=== PATIENT | male | born 1985 | race Caucasian/White ===

== ENCOUNTER 2019-05-17 07:45 | Emergency (ER) | payer SELFPAY ==
[2019-05-17 07:46] VITALS: BP 201/128; PULSE 97; RESP 18; TEMP 36.2; O2SAT 97; BMI 48.8
--- NOTE | 2019-05-17 08:02 | ED.DCSUM_ITS ---
- ER Visit Summary Date of Service: 05/17/19 Chief Complaint: [Back pain] History of Present Illness: The patient is a 33 M [presents to the emergency department complaint of back pain x2 weeks. Patient states that he has had this issue off and on since high school. Patient noticed that over the last 2 weeks has had exacerbation of his pain and describes some pain radiating into the right buttock and down to the lateral aspect of the right knee. Denies any change in bowel bladder function. He denies weakness in the extremity. He denies urinary symptoms. He denies fevers. He denies IV drug use. Denies any trauma to his back although he states he hurt his back in high school he was told he had some herniated disks and had an MRI while he was in high school. He has had similar pains in the past and typically resolve after a month or 2. Patient denies any chest pain or shortness of breath. Denies abdominal pain. Patient states he has no medical history and has no primary care physician.] Physical Examination: [HEENT-PERRLA, EOMI. Cranial nerves II through XII g rossly intact. TMs clear. Mucous membranes moist. No adenopathy. Cardiovascular-regular rate and rhythm without murmur or ectopy Lungs-clear to auscultation, chest wall stable without crepitus or subcu emphysema Abdomen-normoactive bowel sounds, soft, nontender, no rebound or rigidity, no peritoneal signs. Patient morbidly obese Back exam-patient has some mild discomfort over the right lumbar spine and paraspinal musculature. Patient has tenderness into the right buttock. He has positive straight leg raise with pain at about 45 degrees. Patient has normal sensation. Deep tendon reflexes are plus 2 out of 4 bilaterally at the patella and Achilles. Patient has normal strength at L5. Extremities-intact ?4, normal range of motion, normal pulses, atraumatic] Test Results: [None indicated] Emergency Department Course and Treatment: [] Treatment Plan: [Patient will be given a prescription for Naprosyn, Flexeril, and [place] for pain. Patient advised to keep a journal of his blood pressures and follow-up with primary care physician regarding these. Patient was noted to have elevated blood pressures in the emergency department on arrival however he is asymptomatic. Patient advised to quit smoking and lose weight. Patient to increase exercise activity.] Disposition: [Discharged home stable condition.] Impression: [Acute exacerbation of chronic back pain Sciatica Hypertension-to be established] This note was generated with [email or web address] dictation software. It may contain incorrect words, spelling, and punctuation that were not noted in review of the chart prior to signing ED Disposition - Plan for ED Patient: Referrals: Dion Bowers MD [Primary Care Provider] -
--- NOTE | 2019-05-17 08:05 | ED.DEP ---
ED Disposition - Plan for ED Patient: Instructions: BACK PAIN w/ SCIATICA, High Blood Pressure (Hypertension) Prescriptions: cycloBENZAPRine HCl [Flexeril] 10 mg PO TID PRN #20 tab PRN Reason: Muscle Spasm Prescription Printed Naproxen [Naprosyn] 500 mg PO BID PRN #20 tab Prescription Printed Hydrocodone Bitart/Apap 5-325 [[place] 5MG-325MG] 1 tab PO Q4H PRN PRN 2 Days #14 tab PRN Reason: Pain Prescription Printed Referrals: Dion Bowers MD [Primary Care Provider] - Jaswant Jurado DO [STAFF PHYSICIAN] - 3-5 Days
[2019-05-17 08:23] VITALS: BP 160/102
== END 2019-05-17 08:23 | disposition home or self-care (01) ==
LOC: ED 08:08
PROVIDERS: Emergency Provider Emergency Medicine
DX: M54.41 Lumbago with sciatica, right side (principal); G89.29 Other chronic pain; I10 Essential (primary) hypertension; F17.200 Nicotine dependence, unspecified, uncomplicated
CPT/HCPCS: 99282

== ENCOUNTER → 2020-03-08 10:56 | Outpatient (CLI) | payer MEDICAID, SELFPAY ==
[2020-03-08 10:42] VITALS: BMI 48.8
[2020-03-08 12:19] LABS: Absolute Lymphocyte Count 3.13 X10^3/uL (0.83-4.51); Absolute Neutrophil Count 2.3 X10^3/uL (2.0-7.7); Basophil# 0.06 X10^3/uL; Basophil% 0.9 % (0-1); Eosinophil# 0.23 X10^3/uL; Eosinophils% 3.6 % (0-5); Hematocrit 49.6 % (40-54); Hemoglobin 15.9 g/dL (13.0-16.5); Lymphocyte # 3.13 X10^3/ul (4.0); Lymphocyte % 49.4 % (19-41); Mean Corp Hgb Conc 32.1 g/dL (32-36); Mean Corpuscular Hgb 31.4 pg (27.0-32.0); Mean Corpuscular Volume 97.8 fL (80-94); Mean Platelet Vol. 10.6 fl (6.2-12.0); Monocyte% 9.5 % (0-10); NRBC Flagged by Analyzer 0 % (0-5); Neutrophil # 2.26 X10^3/uL (2.7-7.7); Neutrophil % 35.8 % (47-70); Platelet Count 266 K/mm3 (150-450); RBC Distribution Width CV 12.8 % (11.6-14.6); RBC Distribution Width SD 45.5 fl (35.1-43.9); Red Blood Count 5.07 M/mm3 (4.6-6.2); White Blood Count 6.3 K/mm3 (4.4-11.0)
[2020-03-08 13:05] LABS: ALB/GLOB Ratio 0.9 RATIO (0.9-2.4); AST(SGOT) 70 U/L (15-37); Alanine Aminotransfer ALT/SGPT 55 U/L (16-61); Albumin, Serum 3.6 g/dL (3.2-5.0); Alkaline Phosphatase 74 U/L (45-117); Anion Gap 7 (5-15); BUN 12 mg/dL (7-18); BUN/Creat Ratio 16.9 RATIO (10-20); Calcium,Total 8.8 mg/dL (8.5-10.1); Chloride 110 mmol/L (98-107); Cholesterol 161 mg/dL (200); Creatinine, Serum 0.71 mg/dL (0.70-1.30); EST Glomerular Filtration Rate 136 mL/min (>60); Est Glom Filt Rate - Afr Amer 165 mL/min (>60); Globulin 3.8 g/dL (2.2-4.2); Glucose 94 mg/dL (74-106); High Density Lipoprotein 30 mg/dL; Potassium 4.1 mmol/L (3.5-5.1); Protein, Total 7.4 g/dL (6.4-8.2); Sodium Level 142 mmol/L (136-145); Triglycerides 227 mg/dL; Very Low Density Lipoprotein 45 mg/dL (5-40)
[2020-03-08 13:28] LABS: Hemoglobin A1c 5.3 % (3.8-5.6)
== END ==
PROVIDERS: Referring Provider Internal Medicine; Visit Provider Internal Medicine
DX: I10 Essential (primary) hypertension (principal); E66.01 Morbid (severe) obesity due to excess calories
CPT/HCPCS: 36415; 80053; 80061; 83036; 85025

== ENCOUNTER 2022-03-07 23:56 | Inpatient (IN) | payer MEDICAID, SELFPAY ==
[2022-03-07 23:57] VITALS: RESP 17; TEMP 36.6; O2SAT 97; BMI 52.9
[2022-03-08] VITALS (10 sets, daily range): BP systolic 144–175; BP diastolic 70–99; PULSE 62–89; RESP 16–18; TEMP 36.6–37.2; O2SAT 97–98; BMI 51.2
--- NOTE | 2022-03-08 00:31 | EX.ED.DYSGE1 ---
HPI History of Present Illness Chief Complaint: Back Detail of Chief Complaint: Back pain x5 months Informant: patient Narrative Narrative: Patient presents to the emergency department complaint of back pain x5 months. Patient states that over the last 2 days the pain is worse and having hard time getting out of bed. Patient complains of pain rating down his right leg. Patient was seen at urgent care and had received 3 days of Flexeril which he has since run out of. Has been taken ibuprofen and Tylenol but not get much relief. Patient complains of pain radiating down the right leg with some numbness to his great toe and second toe. Patient has history in high school of a herniated disc that resolved with physical therapy. Patient had an MRI ordered but its not for 3 weeks. Patient scheduled to see neurosurgeon for further evaluation on March 28. Patient unable to work at this point and get around due to the amount of discomfort. Prior similar symptoms: No PFSH [facility] Medical History (Updated 03/08/22 @ 01:[address] Garry Crooks, DO) Asthma Back problem Cataracts, bilateral Seasonal allergies Home Medications acetaminophen 325 mg capsule (Tylenol) 1,000 mg PO Q6H PRN Pain 03/08/22 [History Last Taken Unknown] ibuprofen 600 mg tablet 1,200 mg PO Q6H PRN pain 03/08/22 [History Last Taken Unknown] Allergy/AdvReac Type Severity Reaction Status Date / Time No Known Allergies Allergy Verified 03/08/22 00:00 Family History (Updated 03/08/20 @ 08:48 by Chelsea Ayala) Other Diabetes Hypertension Myocardial infarction Surgical History (Updated 03/08/20 @ 08:48 by Chelsea yAala) History of tonsillectomy Social History Smoking Status: Current every day smoker tobacco type: cigarettes alcohol intake: never substance use type: does not use frequency: 1-2 times per week ROS ROS ED Review of Systems ROS Unobtainable: other Constitutional Constitutional ED: Reports lethargy; Denies chills, fever(s), sweats or weight loss Eyes Eyes: Denies blurry vision, change in vision or diplopia ENT ENT ED: Denies rhinorrhea or sore throat Cardiovascular Cardiovascular: Reports chest pain and racing heartbeat; Denies orthopnea Respiratory/Chest Respiratory/Chest: Reports dyspnea and dyspnea on exertion; Denies cough, orthopnea or sputum Gastrointestinal Gastrointestinal: Denies abdominal pain, diarrhea, nausea or vomiting Genitourinary Genitourinary ED: Denies dysuria, hematuria or urinary frequency Musculoskeletal Musculoskeletal: Reports back pain; Denies arthralgias, myalgias or neck pain Integumentary Denies abscess, Abrasions or rash Neurologic Neurologic: Denies headache(s) or weakness Psychiatric Psychiatric: Denies anxiety, depression or suicidal thoughts Endocrine Endocrinology: Denies polydipsia, polyphagia or polyuria Hematologic/Lymphatic Hematologic/Lymphatic: Denies easy bleeding, easy bruising or lymphadenopathy Allergic/Immunologic Allergic/Immunologic ED: Denies mouth swelling, tongue swelling or urticaria EXAM Physical Exam Const Vital Signs: 03/07/22 23:57 Temperature 98 F Temperature Source Temporal Respiratory Rate 17 Pulse Ox 97 Oxygen Delivery Method Room Air Positive well nourished and well developed General Appearance ED: well developed and NAD HEENT Reports TM's clear and moist mucous membranes normocephalic and atraumatic; Negative for trauma or tenderness Tympanic Membrane ED: Yes TM's clear Eyes PERRL and EOMs intact bilaterally General Eye ED: Negative for pale conjunctiva or scleral icterus Neck no lymphadenopathy, supple and no JVD General: Negative for tenderness Chest Wall inspection of chest normal and palpation of chest normal Chest: Negative for tenderness Resp normal respiratory effort and clear to auscultation bilaterally Effort and Inspection: Negative for respiratory distress or pain with movement Auscultation: Negative for rhonchi, wheezes or diminished lung sounds Cardio regular rate, regular rhythm, S1 normal heart sound, S2 normal heart sound and no murmurs Peripheral Pulses: pulses 2+ throughout GI normal to inspection, nondistended, normoactive bowel sounds, soft to palpation, non-tender, non-distended and no masses Back/Spine Back/Spine Narrative: Patient with tenderness to palpation over right lumbar paraspinal musculature and right buttock. Patient has a positive straight leg raise with pain at about 45 degrees on the right. Deep tendon reflexes are plus 2 out of 4 bilaterally at the patella and Achilles. Patient has normal 5 extension. Patient has decree sensation to the right great toe. Extremity normal to inspection General Extremety ED: Negative for edema General Extremity: Negative for edema Neuro oriented x3, CN's II-XII intact bilaterally, no sensory deficits noted and gait normal Sensorium / Orientation: awake, alert, oriented to person, oriented to place and oriented to time Motor Exam: strength 5/5 throughout and strength abnormal Psych mental status grossly normal Skin no rashes or lesions noted and no wounds MDM MDM MDM Narrative Medical decision making narrative: IV line established on arrival. Patient was medicated with Dilaudid and Zofran as well as Norflex. He continued complaint of pain a 10 out of 10. He was given a second milligram of Dilaudid IV. At this point patient case will be discussed with hospitalist to evaluate patient for intractable back pain. Feel patient will need further work-up including MRI to evaluate further. Lab Data Attestation: I reviewed the patient's lab results. Labs: Laboratory Results - last 24 hr 03/08/22 03/08/22 00:45 00:45 WBC 11.8 H RBC 4.63 Hgb 15.5 Hct 46.2 MCV 99.8 H MCH 33.5 H MCHC 33.5 RDW Std Deviation 56.4 H RDW Coeff of Ivonne 15.3 H Plt Count 369 MPV 9.2 Immature Gran % (Auto) 1.200 H Neut % (Auto) 74.4 H Lymph % (Auto) 14.9 L [place] % (Auto) 8.9 Eos % (Auto) 0.3 Baso % (Auto) 0.3 Absolute Neuts (auto) 8.8 H Absolute Lymphs (auto) 1.76 Nucleated RBC % 0 Sodium 143 Potassium 3.6 Chloride 116 H Carbon Dioxide 21.0 Anion Gap 6 BUN 19 H Creatinine 0.88 Estim Creat Clear Calc 125.98 Est GFR (MDRD) Af Amer 128 Est GFR (MDRD) Non-Af 106 BUN/Creatinine Ratio 21.7 H Glucose 136 H Calcium 9.3 Discharge Plan Dx/Rx/DC Orders Clinical Impression: Intractable back pain, Acute lumbar radiculopathy, Morbid obesity, History of hypertension Disposition Disposition: Acute Care Hospital [facility]
[2022-03-08] MEDS: Ondansetron 4 MG/2 ML Vial IV (00:40)
[2022-03-08] MEDS: HYDROmorphone 1 MG/ML Syringe IV ×2 (00:40→02:16)
[2022-03-08] MEDS: Orphenadrine 60 MG/2 ML Ampul IM (00:41)
[2022-03-08 00:52] LABS: Absolute Lymphocyte Count 1.76 X10^3/uL (0.83-4.51); Absolute Neutrophil Count 8.8 X10^3/uL (2.0-7.7); Basophil# 0.03 X10^3/uL; Basophil% 0.3 % (0-1); Eosinophil# 0.03 X10^3/uL; Eosinophils% 0.3 % (0-5); Hematocrit 46.2 % (40-54); Hemoglobin 15.5 g/dL (13.0-16.5); Lymphocyte # 1.76 X10^3/ul (0.83-4.51); Lymphocyte % 14.9 % (19-41); Mean Corp Hgb Conc 33.5 g/dL (32-36); Mean Corpuscular Hgb 33.5 pg (27.0-32.0); Mean Corpuscular Volume 99.8 fL (80-94); Mean Platelet Vol. 9.2 fl (6.2-12.0); Monocyte# 1.05 X10^3/uL; Monocyte% 8.9 % (0-10); NRBC Flagged by Analyzer 0 % (0-5); Neutrophil # 8.82 X10^3/uL (2.7-7.7); Neutrophil % 74.4 % (47-70); Platelet Count 369 K/mm3 (150-450); RBC Distribution Width CV 15.3 % (11.6-14.6); RBC Distribution Width SD 56.4 fl (35.1-43.9); Red Blood Count 4.63 M/mm3 (4.6-6.2); White Blood Count 11.8 K/mm3 (4.4-11.0)
[2022-03-08 01:01] LABS: Anion Gap 6 (5-15); BUN 19 mg/dL (7-18); BUN/Creat Ratio 21.7 RATIO (10-20); Calcium,Total 9.3 mg/dL (8.5-10.1); Chloride 116 mmol/L (98-107); Creatinine, Serum 0.88 mg/dL (0.70-1.30); EST Glomerular Filtration Rate 106 mL/min (>60); Est Glom Filt Rate - Afr Amer 128 mL/min (>60); Estimated Creatinine Clearance 125.98 ml/min; Glucose 136 mg/dL (74-106); Potassium 3.6 mmol/L (3.5-5.1); Sodium Level 143 mmol/L (136-145)
--- NOTE | 2022-03-08 01:40 | HP.PCM.HOS_ITS ---
HPI - General General Date of Admission: 03/08/22 Date of Service: 03/08/22 Chief Complaint: Acute on chronic back pain HPI Narrative CAROLYN BELL, is a 36 M who presents with the above. Patient has past medical history of hypertension, morbid obesity, asthma. Patient stated that he has history of back pain with herniated and ruptured disks years ago in high school. He has had low back pain on and off. He recently started having back pain ongoing for about 5 months. He recently has seen a provider in the urgent care and was referred to see a neurosurgeon and get an MRI of the low back on 28 of March. Patient stated that since 1 day prior to admission, he has had severe mid low back pain that radiates to his hip and down his leg. This is felt more in his big toe. He has not been able to move his bowels because he is afraid to bear down. He admits to associated tingling and numbness running down his legs but denied any incontinence of urine or stool. He has not been able to ambulate since the day before admission. Patient denies any history of trauma or motor vehicle accident His blood pressure in the ED was 163/88, heart rate 89, respiratory 17, temperature 90 8F, oxygen saturation 97% on room air. His RBC count 11.8, hemoglobin 15.5, platelet count 369. Sodium 143, potassium 3.6, chloride 116, bicarbonate 21, BUN 19, creatinine 0.88 PFS Medical History Asthma Back problem Cataracts, bilateral Seasonal allergies Home Medications acetaminophen 325 mg capsule (Tylenol) 1,000 mg PO Q6H PRN Pain 03/08/22 [History Last Taken Unknown] ibuprofen 600 mg tablet 1,200 mg PO Q6H PRN pain 03/08/22 [History Last Taken Unknown] Allergy/AdvReac Type Severity Reaction Status Date / Time No Known Allergies Allergy Verified 03/08/22 00:00 Family History (Updated 03/08/22 @ 02:[address] Paty Aparicio MD) Father CAD (coronary artery disease) Heart disease Mother Hypertension Other Diabetes Myocardial infarction Surgical History History of tonsillectomy Social History Smoking Status: Current every day smoker tobacco type: cigarettes alcohol intake: never substance use type: does not use frequency: 1-2 times per week ROS ROS Narrative Constitutional: Denies: Anorexia, Chills, Fever, Night Sweats, Weight Change Eyes: Denies: Blurred vision, Cataracts, Conjunctivae Inflammation, Pain, Redness, Vision Change HEENT: Denies: Difficulty Hearing, Difficulty Swallowing, Head Aches, Hearing Changes, Sinus Congestion, Sinus Drainage Cardiovascular: Denies: Chest Pain, Orthopnea, Palpitations Respiratory: Denies: Cough, Shortness of breath at rest, Sputum production Gastrointestinal: Denies: Abdominal Pain, Nausea, Vomiting Genitourinary: Denies: Dysuria Musculoskeletal: See HPI Skin: Denies: Rash, Wounds Neurological: Denies: Numbness, Tingling, Focal weakness Is Vital Signs Vital Signs Vital Signs: 03/07/22 23:57 Temperature 98 F Temperature Source Temporal Respiratory Rate 17 Pulse Ox 97 Oxygen Delivery Method Room Air Weight Weight: 172.365 kg Body Mass Index (BMI) 52.9 Physical Exam Narrative Physical exam: General: Alert, Oriented x3, Cooperative, morbidly obese, some discomfort HEENT: Atraumatic Oral: Moist Mucosa Neck: Supple Lungs: Diminished to auscultation Cardiovascular: HS I+II, regular, no murmurs Abdomen: Bowel Sounds Present, Soft, Non Tender, tenderness over the mid lumbar region Extremities: No edema Skin: No rashes, No breakdown Neurological: Grossly intact Psych/Mental Status: Appropriate Results Lab / Micro Data Result Diagrams: 03/08/22 00:45 03/08/22 00:45 Labs: Laboratory Results - last 24 hr 03/08/22 00:45: WBC 11.8 H, RBC 4.63, Hgb 15.5, Hct 46.2, MCV 99.8 H, MCH 33.5 H , MCHC 33.5, RDW Std Deviation 56.4 H, RDW Coeff of Ivonne 15.3 H, Plt Count 369, MPV 9.2, Immature Gran % (Auto) 1.200 H, Neut % (Auto) 74.4 H, Lymph % (Auto) 14.9 L, [place] % (Auto) 8.9, Eos % (Auto) 0.3, Baso % (Auto) 0.3, Absolute Neuts (auto) 8.8 H, Absolute Lymphs (auto) 1.76, Nucleated RBC % 0 03/08/22 00:45: Sodium 143, Potassium 3.6, Chloride 116 H, Carbon Dioxide 21.0, Anion Gap 6, BUN 19 H, Creatinine 0.88, Estim Creat Clear Calc 125.98, Est GFR (MDRD) Af Amer 128, Est GFR (MDRD) Non-Af 106, BUN/Creatinine Ratio 21.7 H, Glucose 136 H, Calcium 9.3 Assessment & Plan Assessment/Plan (1) Intractable back pain: PLAN: Plan 1. Acute on chronic intractable back pain, in a patient with history of disc herniation and rupture Patient presents with associated radiculopathy, tingling and numbness concerning for possible disc herniation Admit to MedSurg, pain control with scheduled Tylenol, Flexeril, as needed morphine, Lidoderm patches MRI of the lumbar spine, PT/OT to evaluate and treat 2. Elevated blood pressure, unclear if related to pain, continue to monitor Patient states that he has been on blood pressure medications on and off. We will monitor for now, hydralazine as needed 3. Morbid obesity, BMI 53.0, lifestyle modification recommended 4. Asthma/seasonal and, not in acute exacerbation 5. DVT prophylaxis, Lovenox subcu BID Charges/Coding Visit Charges Inpatient E&M: 03968 Init Hosp L3
--- NOTE | 2022-03-08 03:04 | MRI_ITS ---
STUDY: MRI LUMBAR SPINE WITHOUT CONTRAST REASON FOR EXAM: Male, 36 years old. Acute back pain, radiculopathy right leg TECHNIQUE: Standardized fat and water weighted pulse sequences were obtained in the sagittal and axial planes. COMPARISON: None FINDINGS: Straightening of the normal alignment of the columns of the lumbar spine is visualized. No evidence of spondylolisthesis is seen. The lumbar vertebral bodies demonstrate no evidence of compression deformity, multilevel degenerative endplate changes visualized. No evidence of T2 prolongation is seen on the STIR sequence to suggest acute fracture, edema or infiltrative process. The cord terminates at the level of the L1 vertebral body, the terminal nerve roots demonstrate no evidence of thickening or clumping to suggest arachnoiditis. Disc desiccation most prominent at L4-5 intervertebral disc, no significant decreased intervertebral disc height is seen. Normal visualized sacral ala. Normal visualized paraspinous soft tissue structures. Limited evaluation of the abdominal soft tissues is unremarkable. T12-L1 demonstrates a left paracentral/foraminal disc bulge with hypertrophic changes in the facet joints most prominent in the left facet joints. Mild narrowing of the left foraminal space, no significant narrowing of the right neural foramina and moderate narrowing of the left neuroforamina is visualized at this level. L1-2: Degenerative disc with hypertrophic changes in the facet joints and ligamentum flavum visualized at this level, no significant narrowing of the spinal canal is visualized, no significant narrowing of the right neural foramina and no significant narrowing of the left neuroforamina seen at this level. L2-3: Right paracentral disc bulges hypertrophic changes in the facet joints and ligamentum flavum, mild narrowing of the spinal canal is visualized with moderate narrowing of the right neural foramina and mild narrowing of the left neuroforamina seen at this level. L3-4: Mild degenerative disc changes, hypertrophic changes in the facet joints at this level with no significant narrowing of the spinal canal and no significant narrowing of bilateral neuroforamina seen at this level. L4-5: Right paracentral disc bulge visualized causing moderate to severe narrowing of the spinal canal, moderate narrowing of the right neural foramina and mild to moderate narrowing of the left neuroforamina. L5-S1: Right paracentral disc bulge visualized with no significant narrowing of the spinal canal, degenerative changes visualized with moderate narrowing of the right neural foramina and mild to moderate narrowing of the left neuroforamina seen at this level. MRI/Spine Lumbar (Routine) IMPRESSION: Multilevel degenerative changes of the lumbar spine visualized most prominent at the L4-L5 intervertebral disc space level. Electronically Signed: Tyrell Carvajal MD at 11:21 EDT ,
[2022-03-08] MEDS: Acetaminophen 500 MG Tablet 1000 MG PO ×3 (03:36→21:13)
[2022-03-08] MEDS: hydrALAZINE 20 MG/ML Vial 5 MG IV ×3 (03:37→21:06)
[2022-03-08] MEDS: 0.9% Saline Lock 10 ML Syringe IV ×7 (03:37→23:47)
[2022-03-08] MEDS: cycloBENZAPRine HCl 10 MG Tablet PO ×3 (03:37→22:35)
[2022-03-08] MEDS: Lidocaine 5% Patch 3 PATCH TOPICAL (03:37)
[2022-03-08] MEDS: Morphine 4 MG/ML Syringe IV ×5 (03:37→18:20)
[2022-03-08 06:17] LABS: Absolute Lymphocyte Count 3.74 X10^3/uL (0.83-4.51); Absolute Neutrophil Count 7.9 X10^3/uL (2.0-7.7); Basophil# 0.04 X10^3/uL; Basophil% 0.3 % (0-1); Eosinophil# 0.08 X10^3/uL; Eosinophils% 0.6 % (0-5); Hematocrit 44.3 % (40-54); Hemoglobin 14.6 g/dL (13.0-16.5); Lymphocyte # 3.74 X10^3/ul (0.83-4.51); Lymphocyte % 28.9 % (19-41); Mean Corpuscular Hgb 33.3 pg (27.0-32.0); Mean Corpuscular Volume 100.9 fL (80-94); Mean Platelet Vol. 9.4 fl (6.2-12.0); Monocyte# 0.99 X10^3/uL; Monocyte% 7.7 % (0-10); NRBC Flagged by Analyzer 0 % (0-5); Neutrophil # 7.93 X10^3/uL (2.7-7.7); Neutrophil % 61.3 % (47-70); Platelet Count 353 K/mm3 (150-450); RBC Distribution Width CV 15.5 % (11.6-14.6); RBC Distribution Width SD 57.7 fl (35.1-43.9); Red Blood Count 4.39 M/mm3 (4.6-6.2); White Blood Count 12.9 K/mm3 (4.4-11.0)
[2022-03-08 06:48] LABS: ALB/GLOB Ratio 1.2 RATIO (0.9-2.4); AST(SGOT) 56 U/L (15-37); Alanine Aminotransfer ALT/SGPT 40 U/L (16-61); Albumin, Serum 3.7 g/dL (3.2-5.0); Alkaline Phosphatase 68 U/L (45-117); Anion Gap 6 (5-15); BUN 20 mg/dL (7-18); BUN/Creat Ratio 31.3 RATIO (10-20); Calcium,Total 8.9 mg/dL (8.5-10.1); Chloride 112 mmol/L (98-107); Creatinine, Serum 0.64 mg/dL (0.70-1.30); EST Glomerular Filtration Rate 152 mL/min (>60); Est Glom Filt Rate - Afr Amer 184 mL/min (>60); Estimated Creatinine Clearance 173.22 ml/min; Globulin 3.2 g/dL (2.2-4.2); Glucose 103 mg/dL (74-106); Potassium 3.4 mmol/L (3.5-5.1); Protein, Total 6.9 g/dL (6.4-8.2); Sodium Level 139 mmol/L (136-145)
[2022-03-08] MEDS: Magnesium Hydroxide 30 ML UDC PO (06:59)
--- NOTE | 2022-03-08 07:31 | PN.HOSP_ITS ---
Subjective Subjective Complains of pain in his back going down his right leg. Denies any bowel or bladder incontinence. Denies any saddle anesthesia. Objective Data Objective Data Vital Signs: Vital Signs Temp Pulse Resp BP Pulse Ox O2 Del Method 37.2 C 71 16 175/98 H 97 Room Air 03/08/22 03:30 03/08/22 06:57 03/08/22 03:30 03/08/22 06:57 03/08/22 03:30 03/08/22 03:56 Oxygen Delivery Method Room Air Weight: 166.8 kg Body Mass Index (BMI) 51.2 Intake & Output: Intake and Output for Last 24 Hours 03/06/22 03/07/22 03/08/22 23:59 23:59 23:59 Intake Total 800 / 800 Output Total 700 / 700 Balance 100 / 100 Lab / Micro Data Result Diagrams: 03/08/22 05:50 03/08/22 05:50 Labs: Laboratory Results - last 24 hr 03/08/22 00:45: WBC 11.8 H, RBC 4.63, Hgb 15.5, Hct 46.2, MCV 99.8 H, MCH 33.5 H , MCHC 33.5, RDW Std Deviation 56.4 H, RDW Coeff of Ivonne 15.3 H, Plt Count 369, MPV 9.2, Immature Gran % (Auto) 1.200 H, Neut % (Auto) 74.4 H, Lymph % (Auto) 14.9 L, [place] % (Auto) 8.9, Eos % (Auto) 0.3, Baso % (Auto) 0.3, Absolute Neuts (auto) 8.8 H, Absolute Lymphs (auto) 1.76, Nucleated RBC % 0 03/08/22 00:45: Sodium 143, Potassium 3.6, Chloride 116 H, Carbon Dioxide 21.0, Anion Gap 6, BUN 19 H, Creatinine 0.88, Estim Creat Clear Calc 125.98, Est GFR (MDRD) Af Amer 128, Est GFR (MDRD) Non-Af 106, BUN/Creatinine Ratio 21.7 H, Glucose 136 H, Calcium 9.3 03/08/22 05:50: WBC 12.9 H, RBC 4.39 L, Hgb 14.6, Hct 44.3, MCV 100.9 H, MCH 33.3 H, MCHC 33.0, RDW Std Deviation 57.7 H, RDW Coeff of Ivonne 15.5 H, Plt Count 353, MPV 9.4, Immature Gran % (Auto) 1.200 H, Neut % (Auto) 61.3, Lymph % (Auto) 28.9, [place] % (Auto) 7.7, Eos % (Auto) 0.6, Baso % (Auto) 0.3, Absolute Neuts (auto) 7.9 H, Absolute Lymphs (auto) 3.74, Nucleated RBC % 0 03/08/22 05:50: Sodium 139, Potassium 3.4 L, Chloride 112 H, Carbon Dioxide 21.0, Anion Gap 6, BUN 20 H, Creatinine 0.64 L, Estim Creat Clear Calc 173.22, E st GFR (MDRD) Af Amer 184, Est GFR (MDRD) Non-Af 152, BUN/Creatinine Ratio 31.3 H, Glucose 103, Calcium 8.9, Total Bilirubin 0.20, AST 56 H, ALT 40, Alkaline Phosphatase 68, Total Protein 6.9, Albumin 3.7, Globulin 3.2, Albumin/Globulin Ratio 1.2 Physical Exam Const alert Constitutional Narrative: Uncomfortable. HEENT head/scalp atraumatic and moist oral mucous membranes Extremity normal to inspection Neuro oriented x3 Neuro Narrative: Diminished plantar flexion of the right foot. Hyperreflexia of the right patella. Psych affect normal Assessment & Plan Assessment/Plan (1) Intractable back pain: PLAN: Plan 1. Acute on chronic intractable back pain, in a patient with history of disc herniation and rupture Patient presents with associated radiculopathy, tingling and numbness concerning for possible disc herniation Admit to MedSurg, pain control with scheduled Tylenol, Flexeril, as needed m orphine, Lidoderm patches MRI of the lumbar spine, performed that showed disc herniation. I was concerned given the patient's symptoms did not match up with the read so I spoke with Dr. Salcedo. He stated the patient has herniation at L5-S1. He recommended dexamethasone 4 mg every 6 hours for 24 hours, 100 mg gabapentin 3 times daily and plan for caudal epidural on the fourth. PT/OT to evaluate and treat 2. Elevated blood pressure, unclear if related to pain, continue to monitor Patient states that he has been on blood pressure medications on and off. We will monitor for now, hydralazine as needed 3. Morbid obesity, BMI 53.0, lifestyle modification recommended 4. Asthma/seasonal and, not in acute exacerbation 5. DVT prophylaxis, Lovenox subcu BID Greater than 35 minutes of which greater than for percent of time was discussing with spine surgery, as well as the patient reviewing the plan with the patient and his father at bedside. Charges/Coding Visit Charges Inpatient E&M: 44102 Subs Hosp L3
[2022-03-08] MEDS: Enoxaparin 40 MG/0.4 ML Syringe SC ×2 (09:42→21:09)
--- NOTE | 2022-03-08 10:50 | CASEMGMT ---
RN CM Face to Face with patient for initial transition planning/care coordination assessment. RN CM introduced self and role at [facility]. Patient lying in bed, alert and oriented, father at bedside. Patient willing to participate in assessment and is able to answer all questions appropriately. Care providers, pharmacy, and demographics verified. Patient wishes to discharge home, denies need for home health at this time. Patient states he has no further needs or concerns at this time. CM to follow for discharge planning needs that may arise. PCP: No PCP, list provided to patient Specialists: none Preferred Pharmacy: [facility] retail at discharge. Insurance: [employer] Prescription Benefit: yes Living Will/HPOA: none LNOK: father, step mother, mother Living Arrangements: Patient lives with father and step mother in a single story home with 1 step to enter. Patient states he was independent at home. Transportation: self, father DME/HHC: Patient states he has raised toilet and crutches at home. Will monitor for FWW at discharge. Patient denies previous HHC. Disposition Plan: Patient to discharge home with family support and follow-up plans in place. Marizol HERNANDEZ, RN, CM
[2022-03-08] MEDS: Senna/Docusate Sodium 1 Tablet 2 TABLET PO ×2 (11:07→21:10)
--- NOTE | 2022-03-08 11:08 | SUR.HOLD ---
started by nursing
[2022-03-08] MEDS: oxyCODONE 5 MG Tablet 10 MG PO ×4 (11:31→23:57)
--- NOTE | 2022-03-08 11:55 | CON.PCM.OR_ITS ---
HPI Consult Data Date of Consult: 03/08/22 HPI Narrative Reason for Consultation: Low back pain radiating to the right lower extremity HPI Narrative: The patient is a 36-year-old male here with complaints of acute exacerbation of chronic low back pain radiating to the right lower extremity. He states he has had the symptoms episodically for about 5 months but on Sunday they worsen. Onset was insidious and he denies any history of back surgeries or back injections. He describes pain mostly in the right lumbosacral region radiating to the right lateral thigh and right lateral leg below the knee with paresthesias in the sole of the right foot. He did present to the ER this morning where he was subsequently admitted. [facility] was consulted for evaluation and management. A lumbar MRI has been performed. He denies any other acute numbness tingling weakness or changes in bowel or bladder function. He states that he does have a history of back injury with disc herniation that was treated nonoperatively many years ago. PFSH Medical History Asthma Back problem Cataracts, bilateral Chronic pain Depression GERD (gastroesophageal reflux disease) Seasonal allergies Smoker Home Medications acetaminophen 325 mg capsule (Tylenol) 1,000 mg PO Q6H PRN Pain 03/08/22 [History Last Taken Unknown] cyclobenzaprine 10 mg tablet 10 mg PO TID PRN Back Pain 03/08/22 [History Last Taken Unknown] ibuprofen 600 mg tablet 1,200 mg PO Q6H PRN pain 03/08/22 [History Last Taken Unknown] prednisone 10 mg tablet See Taper PO DAILY back pain 03/08/22 [History Last Taken Unknown] Allergy/AdvReac Type Severity Reaction Status Date / Time No Known Allergies Allergy Verified 03/08/22 00:00 Family History (Updated 03/08/22 @ 02:[address] Paty Aparicio MD) Father CAD (coronary artery disease) Heart disease Mother Hypertension Other Diabetes Myocardial infarction Surgical History History of tonsillectomy Social History Smoking Status: Current every day smoker tobacco type: cigarettes alcohol intake: never substance use type: does not use frequency: 1-2 times per week Vital Signs Vital Signs Vital Signs: 03/07/22 23:57 03/08/22 02:13 03/08/22 03:30 Temperature 98 F 97.9 F 99.0 F Temperature Source Temporal Temporal Oral Pulse Rate 89 86 Respiratory Rate 17 18 16 Respiratory Effort Respiratory Depth Respiratory Pattern Blood Pressure 163/88 H 171/81 H Blood Pressure [BP] Blood Pressure Mean 113 111 Blood Pressure Mean [BP] Blood Pressure Source Monitor Blood Pressure Position Left Lateral Blood Pressure Location Right Forearm Pulse Ox 97 98 97 Oxygen Delivery Method Room Air Room Air Room Air 03/08/22 03:37 03/08/22 03:56 03/08/22 06:57 Temperature Temperature Source Pulse Rate 86 71 Respiratory Rate Respiratory Effort Normal Respiratory Depth Normal Respiratory Pattern Normal Blood Pressure Blood Pressure [BP] 175/98 H Blood Pressure Mean Blood Pressure Mean [BP] 123 Blood Pressure Source Blood Pressure Position Blood Pressure Location Pulse Ox Oxygen Delivery Method Room Air 03/08/22 08:00 Temperature 98.3 F Temperature Source Oral Pulse Rate 84 Respiratory Rate 16 Respiratory Effort Respiratory Depth Respiratory Pattern Blood Pressure 160/70 H Blood Pressure [BP] Blood Pressure Mean 100 Blood Pressure Mean [BP] Blood Pressure Source Monitor Blood Pressure Position Left Lateral Blood Pressure Location Left Forearm Pulse Ox 98 Oxygen Delivery Method Room Air Weight Weight: 367 lb 11.697 oz Body Mass Index (BMI) 51.2 Physical Exam Narrative The patient is lying in bed resting comfortably. Const alert, oriented x3 and no apparent distress General Appearance: cooperative, comfortable and well kempt HEENT normocephalic and head/scalp atraumatic Eyes EOMs intact bilaterally and conjunctivae normal Neck full ROM General: normal visual inspection Chest inspection of chest normal and palpation of chest normal Resp normal respiratory effort and normal air movement Effort and Inspection: able to speak in complete sentences Cardio regular rate and peripheral pulses 2+ throughout GI soft to palpation, non-tender and non-distended Back/Spine no thoracic nor lumbar tenderness Cervical Spine: cervical ROM normal Thoracic Spine / Upper Back: normal to inspection Lumbar Spine / Lower Back: normal to inspection Extremity normal to inspection, full ROM, normal capillary refill, no clubbing, cyanosis or edema and no calf tenderness Extremity Narrative: Patient does have positive straight leg raise on the right causing pain in the right lower back and gluteal region Skin no rashes or lesions noted General Skin Exam: no breakdown Neuro oriented x3, CN's II-XII intact bilaterally, moves all extremities, no focal motor deficits and deep tendon reflexes 2+ bilaterally Neuro Narrative: The patient does report mild decrease sensation in the sole of the right foot Motor Exam: strength 5/5 throughout and muscle tone normal throughout Lab / Micro Data Result Diagrams: 03/08/22 05:50 03/08/22 05:50 Labs: Laboratory Results - last 24 hr 03/08/22 00:45: WBC 11.8 H, RBC 4.63, Hgb 15.5, Hct 46.2, MCV 99.8 H, MCH 33.5 H , MCHC 33.5, RDW Std Deviation 56.4 H, RDW Coeff of Ivonne 15.3 H, Plt Count 369, MPV 9.2, Immature Gran % (Auto) 1.200 H, Neut % (Auto) 74.4 H, Lymph % (Auto) 14.9 L, Barron % (Auto) 8.9, Eos % (Auto) 0.3, Baso % (Auto) 0.3, Absolute Neuts (auto) 8.8 H, Absolute Lymphs (auto) 1.76, Nucleated RBC % 0 03/08/22 00:45: Sodium 143, Potassium 3.6, Chloride 116 H, Carbon Dioxide 21.0, Anion Gap 6, BUN 19 H, Creatinine 0.88, Estim Creat Clear Calc 125.98, Est GFR (MDRD) Af Amer 128, Est GFR (MDRD) Non-Af 106, BUN/Creatinine Ratio 21.7 H, Glucose 136 H, Calcium 9.3 03/08/22 05:50: WBC 12.9 H, RBC 4.39 L, Hgb 14.6, Hct 44.3, MCV 100.9 H, MCH 33.3 H, MCHC 33.0, RDW Std Deviation 57.7 H, RDW Coeff of Ivonne 15.5 H, Plt Count 353, MPV 9.4, Immature Gran % (Auto) 1.200 H, Neut % (Auto) 61.3, Lymph % (Auto) 28.9, Barron % (Auto) 7.7, Eos % (Auto) 0.6, Baso % (Auto) 0.3, Absolute Neuts (auto) 7.9 H, Absolute Lymphs (auto) 3.74, Nucleated RBC % 0 03/08/22 05:50: Sodium 139, Potassium 3.4 L, Chloride 112 H, Carbon Dioxide 21.0, Anion Gap 6, BUN 20 H, Creatinine 0.64 L, Estim Creat Clear Calc 173.22, Est GFR (MDRD) Af Amer 184, Est GFR (MDRD) Non-Af 152, BUN/Creatinine Ratio 31.3 H, Glucose 103, Calcium 8.9, Total Bilirubin 0.20, AST 56 H, ALT 40, Alkaline Phosphatase 68, Total Protein 6.9, Albumin 3.7, Globulin 3.2, Albumin/Globulin Ratio 1.2 Radiology Impression Lumbar Spine MRI 03/08/22 03:04 IMPRESSION: Multilevel degenerative changes of the lumbar spine visualized most prominent at the L4-L5 intervertebral disc space level. Electronically Signed: Tyrell Carvajal MD at 11:21 EDT , Assessment & Plan Assessment/Plan (1) Acute lumbar radiculopathy: (2) Lumbar disc herniation: PLAN: I had a lengthy discussion with the patient. I reviewed his imaging with him. His lumbar MRI dated 03/08/2022 shows good overall alignment in the coronal and sagittal planes. No gross instability is noted. There is a right paracentral disc herniation at L4-5 and L5-S1 compressing the thecal sac and exiting nerve root which I feel is contributing to his complaints. After discussing the risks benefits and alternatives and answering all of his questions I recommend a caudal epidural steroid injection. He agrees to proceed. We will get him scheduled for this. In the meantime I recommend pain control and mobilization as tolerated. If he does get significant relief and is able to be discharged he can follow-up with me in the clinic. He understands and agrees with the treatment plan.
[2022-03-08] MEDS: Gabapentin 100 MG Capsule PO ×2 (12:25→17:38)
[2022-03-08] MEDS: dexAMETHasone 4 MG/ML Vial IV ×3 (12:26→23:48)
[2022-03-08] MEDS: diazePAM 5 MG Tablet PO (17:37)
[2022-03-09 03:31] VITALS: BP 157/76; PULSE 55; RESP 16; TEMP 36.6; O2SAT 97
[2022-03-09] MEDS: Morphine 4 MG/ML Syringe IV ×5 (03:31→21:23)
[2022-03-09] MEDS: 0.9% Saline Lock 10 ML Syringe IV ×9 (03:31→21:23)
--- NOTE | 2022-03-09 06:00 | EKG12_ITS ---
Test Reason : PRE-OP Blood Pressure : / mmHG Vent. Rate : 054 BPM Atrial Rate : 054 BPM P-R Int : 130 ms QRS Dur : 152 ms QT Int : 478 ms P-R-T Axes : 055 040 041 degrees QTc Int : 453 ms Sinus bradycardia Right bundle branch block Abnormal ECG No previous ECGs available Confirmed by MARK MOSHER, MAGEN ([id number]), editor book KRISHAN YOUNG ([id number]) on 03/09/2022 2:08:07 PM Referred By: GRISELDA Confirmed By:MAGEN FLORES MD
[2022-03-09] MEDS: dexAMETHasone 4 MG/ML Vial IV (06:09)
[2022-03-09 06:43] LABS: Anion Gap 5 (5-15); BUN 13 mg/dL (7-18); BUN/Creat Ratio 22.4 RATIO (10-20); Chloride 108 mmol/L (98-107); Creatinine, Serum 0.58 mg/dL (0.70-1.30); EST Glomerular Filtration Rate 169 mL/min (>60); Est Glom Filt Rate - Afr Amer 205 mL/min (>60); Estimated Creatinine Clearance 191.14 ml/min; Glucose 149 mg/dL (74-106); Potassium 3.8 mmol/L (3.5-5.1); Sodium Level 138 mmol/L (136-145)
--- NOTE | 2022-03-09 07:08 | PCM.PN.HOSP ---
Subjective Subjective Feeling slightly better post injection. Objective Data Objective Data Vital Signs: Vital Signs Temp Pulse Resp BP Pulse Ox O2 Del Method 36.6 C 55 L 16 157/76 H 97 Room Air 03/09/22 03:31 03/09/22 03:31 03/09/22 03:31 03/09/22 03:31 03/09/22 03:31 03/09/22 03:31 Oxygen Delivery Method Room Air Weight: 166.8 kg Body Mass Index (BMI) 51.2 Intake & Output: Intake and Output for Last 24 Hours 03/07/22 03/08/22 03/09/22 23:59 23:59 23:59 Intake Total 3850 / 3850 Output Total 3500 / 3500 850 / 850 Balance 350 / 350 -850 / -850 Lab / Micro Data Result Diagrams: 03/08/22 05:50 03/09/22 05:08 Labs: Laboratory Results - last 24 hr 03/09/22 05:08: Sodium 138, Potassium 3.8, Chloride 108 H, Carbon Dioxide 25.0, Anion Gap 5, BUN 13, Creatinine 0.58 L, Estim Creat Clear Calc 191.14, Est GFR (MDRD) Af Amer 205, Est GFR (MDRD) Non-Af 169, BUN/Creatinine Ratio 22.4 H, Glucose 149 H, Calcium 9.0 Radiography Diagnostic Testing: Radiology Impression Lumbar Spine MRI 03/08/22 03:04 IMPRESSION: Multilevel degenerative changes of the lumbar spine visualized most prominent at the L4-L5 intervertebral disc space level. Electronically Signed: Tyrell Carvajal MD at 11:21 EDT , Physical Exam Const alert and no apparent distress Neuro Neuro Narrative: Slight hyperreflexia of the patellar tendons. Muscle strength is intact in the lower extremities but effort is limited due to his back pain. Psych affect normal Assessment & Plan Assessment/Plan (1) Intractable back pain: PLAN: Plan 1. Acute on chronic intractable back pain, in a patient with history of disc herniation and rupture Patient presents with associated radiculopathy, tingling and numbness concerning for possible disc herniation Admit to MedSurg, pain control with scheduled Tylenol, Flexeril, as needed morphine, Lidoderm patches MRI of the lumbar spine, performed that showed disc herniations. I was concerned given the patient's symptoms did not match up with the read so I spoke with Dr. Salcedo. He stated the patient has herniation at L5-S1. He recommended dexamethasone 4 mg every 6 hours for 24 hours, 100 mg gabapentin 3 times daily and plan for caudal epidural on the fourth. PT/OT to evaluate and treat. Did encourage patient to engage with therapy as he is unable to tolerate. Status post caudal epidural on the fourth 2. Elevated blood pressure, Pressure has been consistently elevated certainly exacerbated by pain Patient states that he has been on blood pressure medications on and off. We will monitor for now, hydralazine as needed still elevated: add amlodipine 3. Morbid obesity, BMI 53.0, lifestyle modification recommended 4. Asthma/seasonal and, not in acute exacerbation 5. DVT prophylaxis, Lovenox subcu BID Charges/Coding Visit Charges Inpatient E&M: 60934 Subs Hosp L2
[2022-03-09 08:55] VITALS: BP 185/106; PULSE 65; RESP 16; TEMP 36.8; O2SAT 97; BMI 51.2
--- NOTE | 2022-03-09 10:30 | OP.PCM_ITS ---
Problems Associated Problem List Diagnoses (1) Lumbar disc herniation: (2) Acute lumbar radiculopathy: Report of Operation Date of Procedure: 03/09/22 Pre-Operative Diagnosis: 1. Lumbar stenosis, L4-5 with spondylosis 2. Lumbar disc herniation L4-5 3. Lumbar stenosis L5-S1 with spondylosis 4. Lumbar disc herniation L5-S1 5. Lumbar radiculopathy Post-Operative Diagnosis: 1. Lumbar stenosis, L4-5 with spondylosis 2. Lumbar disc herniation L4-5 3. Lumbar stenosis L5-S1 with spondylosis 4. Lumbar disc herniation L5-S1 5. Lumbar radiculopathy Surgery/Procedure Performed:: Surgeon: Raffaele Salcedo DO Diagnosis: Lumbar stenosis without neurogenic claudication Complications: None Blood loss: None Anesthesia: Local Time out: A timeout was completed verifying correct patient, procedure, site, positioning, implant, and/or special equipment. Fluoroscopy time: Indications for the procedure: Failed physical therapy and oral medications Procedure: The patient was seen in the preop holding area. Risks and benefits of the procedure were explained to the patient and informed consent was obtained. The patient was transported to the procedure room and positioned prone on the fluor oscopy table. The back was prepped and draped in the usual sterile fashion. Sterile technique was used throughout. Corresponding skin and subcutaneous tissue needle entry sites were anesthetized via a 27-gauge 1.5 inch needle using 1% lidocaine x10 mL. Under fluoroscopic guidance a 22-gauge 7 inch spinal needle was advanced to enter the caudal space. Position was confirmed in AP, oblique, and lateral views. Subsequently contrast was injected. Positive epidural spread was noted in both AP and lateral views. No intramuscular or intrathecal uptake was noted. After negative aspiration: Bupivacaine 0.25% 3 mL, 1 mL of Kenalog 40 mg/mL, and preservative-free normal saline 3 mL for a total volume of 7 mL was injected. The needle was removed. No complications were noted. The patient was transported to the recovery room and monitored until discharge criteria were met. Signature Date Time Surgeon: Raffaele Salcedo Type of Anesthesia: Local Estimated Blood Loss (mL): None Complications None Admit VTE Documentation VTE Present on Admission: No
--- NOTE | 2022-03-09 10:45 | RAD_ITS ---
PROCEDURE: CAUDAL EPIDURAL STERIOD INJECTION INDICATION: CAUDAL EPIDURAL STERIOD INJECTION EXAMINATION/TECHNIQUE: X-RAY - IR Fluoro Guide Injection Spine COMPARISON: MRI lumbar spine obtained on 03/08/2022. FLUOROSCOPY time: 0:47 minutes/seconds FINDINGS: 2 spot fluoroscopic images were obtained intraoperatively. Lateral view of the sacrum and coccyx was obtained demonstrating contrast injection. No radiologist was present for the procedure, please refer to operative report for details. RAD/Fluor Guidance for Spine Inj IMPRESSION: Please refer to operative report for details. Electronically Signed: Tyrell Carvajal MD at 12:03 EDT ,
[2022-03-09] MEDS: 0.9% Normal Saline (Pres. free 10 ML Vial (10:56)
[2022-03-09] MEDS: Triamcinolone Acetonide 40 MG/ML Vial (10:56)
[2022-03-09] MEDS: Bupivacaine 0.25% 30 ML Vial (10:56)
[2022-03-09 11:30] VITALS: BP 157/82; PULSE 60; RESP 16; TEMP 36.7; O2SAT 96
[2022-03-09] MEDS: Gabapentin 100 MG Capsule PO ×2 (11:49→16:12)
[2022-03-09] MEDS: cycloBENZAPRine HCl 10 MG Tablet PO ×2 (11:49→20:21)
[2022-03-09] MEDS: oxyCODONE 5 MG Tablet 10 MG PO ×3 (11:52→20:20)
[2022-03-09] MEDS: amLODIPine 5 MG Tablet PO (13:41)
[2022-03-09] MEDS: Acetaminophen 500 MG Tablet 1000 MG PO ×2 (13:43→20:21)
[2022-03-09 15:23] VITALS: BP 163/81; PULSE 72; RESP 18; TEMP 36.9; O2SAT 95
[2022-03-09] MEDS: Senna/Docusate Sodium 1 Tablet 2 TABLET PO (20:22)
[2022-03-09 20:33] VITALS: PULSE 69
[2022-03-09] MEDS: hydrALAZINE 20 MG/ML Vial 5 MG IV (20:33)
[2022-03-09 20:38] VITALS: BP 176/94; PULSE 69; RESP 16; TEMP 36.7; O2SAT 95
[2022-03-10] MEDS: oxyCODONE 5 MG Tablet 10 MG PO ×5 (01:51→21:53)
[2022-03-10 03:18] VITALS: PULSE 63
[2022-03-10] MEDS: Morphine 4 MG/ML Syringe IV ×2 (03:18→19:22)
[2022-03-10] MEDS: cycloBENZAPRine HCl 10 MG Tablet PO ×3 (03:18→21:34)
[2022-03-10] MEDS: hydrALAZINE 20 MG/ML Vial 5 MG IV (03:18)
[2022-03-10] MEDS: 0.9% Saline Lock 10 ML Syringe IV ×4 (03:18→19:22)
[2022-03-10 03:30] VITALS: BP 162/99; PULSE 60; RESP 18; TEMP 37.1; O2SAT 98
[2022-03-10] MEDS: Ibuprofen 400 MG Tablet PO (06:18)
[2022-03-10] MEDS: Acetaminophen 500 MG Tablet 1000 MG PO ×3 (06:52→21:34)
--- NOTE | 2022-03-10 07:03 | PN.HOSP_ITS ---
Subjective Subjective Difficulty standing due to pain. Per nursing, patient was hyperventilating. Patient states that he does not move around much in bed but primarily lying on his left side. Objective Data Objective Data Vital Signs: Vital Signs Temp Pulse Resp BP Pulse Ox O2 Del Method 37.1 C 60 18 162/99 H 98 Room Air 03/10/22 03:30 03/10/22 03:30 03/10/22 03:30 03/10/22 03:30 03/10/22 03:30 03/10/22 03:30 Oxygen Delivery Method Room Air Weight: 147.9 kg Body Mass Index (BMI) 51.2 Intake & Output: Intake and Output for Last 24 Hours 03/08/22 03/09/22 03/10/22 23:59 23:59 23:59 Intake Total 3850 / 3850 450 / 450 Output Total 3500 / 3500 1900 / 1900 Balance 350 / 350 -1450 / -1450 Lab / Micro Data Result Diagrams: 03/08/22 05:50 03/09/22 05:08 Radiography Diagnostic Testing: Radiology Impression Guidance Fluoroscopy 03/09/22 10:45 IMPRESSION: Please refer to operative report for details. Electronically Signed: Tyrell Carvajal MD at 12:03 EDT , Physical Exam Const Constitutional Narrative: Lying on left side. Alert and oriented. Back/Spine Back/Spine Narrative: Tender in the right lower paraspinal musculature. Extremity normal to inspection and no clubbing, cyanosis or edema Neuro Neuro Narrative: 3-6 DTRs in the patellar reflexes bilaterally. Muscle strength appears to be 5- 5 in the plantarflexion as well as bilateral great toe dorsiflexion. Sensation grossly intact. Assessment & Plan Assessment/Plan (1) Intractable back pain: PLAN: Patient presents with associated radiculopathy, tingling and numbness concerning for possible disc herniation Admit to MedSurg, pain control with scheduled Tylenol, Flexeril, as needed morphine, Lidoderm patches MRI of the lumbar spine, performed that showed disc herniations. I was concerned given the patient's symptoms did not match up with the read so I spoke with Dr. Salcedo. He stated the patient has herniation at L5-S1. He recommended dexamethasone 4 mg every 6 hours for 24 hours, 100 mg gabapentin 3 times daily and plan for caudal epidural on the fourth. PT/OT to evaluate and treat. Did encourage patient to engage with therapy as he is unable to tolerate. Status post caudal epidural on the fourth Add Toradol (2) Hypertension: PLAN: Pressure has been consistently elevated certainly exacerbated by pain Patient states that he has been on blood pressure medications on and off. We will monitor for now, hydralazine as needed still elevated: add amlodipine (3) Debility: PLAN: Limited by pain. I have encouraged patient to do least exercises in the bed. Patient was advised to do core exercises by therapy. I did talk to the patient about hyperextension exercises which he has not previously but acknowledging the cumbersome nature of doing in these hospital beds. I did tell the patient that my goal is to get him home but if he does not improve then relook at a longterm facility. PLAN: Plan 4. Morbid obesity, BMI 53.0, lifestyle modification recommended 5. Asthma/seasonal and, not in acute exacerbation 6. DVT prophylaxis, Lovenox subcu BID Charges/Coding Visit Charges Inpatient E&M: 41480 Subs Hosp L2
[2022-03-10 09:26] VITALS: BP 153/81; PULSE 61; RESP 14; TEMP 36.7; O2SAT 94
[2022-03-10] MEDS: amLODIPine 5 MG Tablet PO (09:31)
[2022-03-10] MEDS: Senna/Docusate Sodium 1 Tablet 2 TABLET PO (09:31)
[2022-03-10] MEDS: Gabapentin 100 MG Capsule PO ×3 (09:31→17:51)
[2022-03-10] MEDS: Lidocaine 5% Patch 3 PATCH TOPICAL (09:32)
--- NOTE | 2022-03-10 09:51 | CASEMGMT ---
RN CM in to pt room to discuss dc planning. Pt states he would like to return home but states he needs to be able to walk first. Pt has FWW in the room, states he has not been oob to use it. States the injection has not been effective. If patient returns home, he would be agreeable to having a FWW, provided pt with local in network DME companies, pt chose [employer]. Plan to return home, pt is not against going to a SNF if needed but states he prefers not. He is unable to make a decision today as he cannot move. Green sheet on chart for FWW in case needed over the weekend.
[2022-03-10] MEDS: Enoxaparin 40 MG/0.4 ML Syringe SC ×2 (10:42→21:34)
[2022-03-10] MEDS: Ketorolac 30 MG/ML Syringe IV ×2 (13:23→17:50)
[2022-03-10 13:30] VITALS: BP 146/70; PULSE 69; RESP 16; TEMP 36.9; O2SAT 98
--- NOTE | 2022-03-10 16:39 | CASEMGMT ---
Social Work SW met with pt and introduced self and role of SW. SW spoke with pt regarding discharge plan. Pt states he lives with his father and step mother. He has been walking, driving and going to work up until this event in which he cannot move. SW inquired about d/c plan and pt is hopeful he can return home. SW encouraged pt to participate with therapy. Discussed alternate discharge plan of SNF if pt is not able to move. Pt acknowledges that this is a possibility, but not a favorable one. Pt states he is motivated to get moving when he feels he can. SW provided pt with a list of SNF providers including quality and resource use data and consistent with the patient's preferred geographic region, medical needs and insurance network. SW will remain available to assist with discharge planning. SYMONE Corado
[2022-03-10 17:56] VITALS: BP 166/92; PULSE 72; RESP 16; TEMP 36.9; O2SAT 94
[2022-03-10 20:00] VITALS: BP 152/95; PULSE 83; RESP 16; TEMP 36.9; O2SAT 96
[2022-03-11] MEDS: Ketorolac 30 MG/ML Syringe IV ×2 (00:09→05:40)
[2022-03-11] MEDS: 0.9% Saline Lock 10 ML Syringe IV ×7 (00:09→20:37)
[2022-03-11 02:00] VITALS: BP 165/97; PULSE 65; RESP 16; TEMP 36.6; O2SAT 94
[2022-03-11 02:04] VITALS: BP 165/97; PULSE 65
[2022-03-11] MEDS: Morphine 4 MG/ML Syringe IV (02:04)
[2022-03-11] MEDS: hydrALAZINE 20 MG/ML Vial 5 MG IV (02:04)
[2022-03-11] MEDS: Acetaminophen 500 MG Tablet 1000 MG PO ×3 (05:40→21:30)
[2022-03-11] MEDS: cycloBENZAPRine HCl 10 MG Tablet PO ×2 (05:41→13:53)
--- NOTE | 2022-03-11 06:56 | PCM.PN.HOSP ---
Subjective Subjective Has been moving his legs in bed but still he has spasms that go up as back and down his leg. Later, patient was working in therapy and was able to sit up and heard a pop and stated that he was unable to move his leg. When I discussed with nursing its not that he could move his leg is that he had too much pain and did not want to move his legs so had to be helped. Objective Data Objective Data Vital Signs: Vital Signs Temp Pulse Resp BP Pulse Ox O2 Del Method 36.6 C 65 16 165/97 H 94 Room Air 03/11/22 02:00 03/11/22 02:04 03/11/22 02:00 03/11/22 02:04 03/11/22 02:00 03/11/22 02:00 Oxygen Delivery Method Room Air Weight: 149.9 kg Body Mass Index (BMI) 51.2 Intake & Output: Intake and Output for Last 24 Hours 03/09/22 03/10/22 03/11/22 23:59 23:59 23:59 Intake Total 450 / 450 950 / 950 Output Total 1900 / 1900 850 / 1450 1300 / 1300 Balance -1450 / -1450 100 / -500 -1300 / -1300 Lab / Micro Data Result Diagrams: 03/08/22 05:50 03/09/22 05:08 Physical Exam Const alert and no apparent distress Neuro Neuro Narrative: DTRs are 3 out of 6 in bilateral patellar. Muscle strength and is 5-5 in great toe dorsiflexion as well as plantarflexion of the feet. Psych affect normal Assessment & Plan Assessment/Plan (1) Intractable back pain: PLAN: Patient presents with associated radiculopathy, tingling and numbness concerning for possible disc herniation Admit to MedSurg, pain control with scheduled Tylenol, Flexeril, as needed morphine, Lidoderm patches MRI of the lumbar spine, performed that showed disc herniations. I was concerned given the patient's symptoms did not match up with the read so I spoke with Dr. Salcedo. He stated the patient has herniation at L5-S1. He recommended dexamethasone 4 mg every 6 hours for 24 hours, 100 mg gabapentin 3 times daily and plan for caudal epidural on the fourth. PT/OT to evaluate and treat. Did encourage patient to engage with therapy as he is unable to tolerate. Status post caudal epidural on the fourth Add fentanyl patch I do not get the sense that the patient is drug-seeking but has a low pain tolerance and becomes anxious when he has severe pain. Patient was observed hyperventilating when he has some back spasms in the room. Reassurance was provided to the patient and discussed with the patient that he needs to be active involved. Patient states that he has had severe pain like this before related with his back and that he had placed himself in bed rest. Patient has never been advised by medical provider that I can find that has advised bedrest. I told him that there is no medical or surgical indication for him to be on bedrest and strongly encouraged him to work with therapy. Again reminding him that we may have to consider senior care facility if he is unable to do his ADLs. (2) Hypertension: PLAN: Pressure has been consistently elevated certainly exacerbated by pain Patient states that he has been on blood pressure medications on and off. We will monitor for now, hydralazine as needed still elevated: add amlodipine (3) Debility: PLAN: Limited by pain, but also anxiety. Pt appear clearly obviously having pain, but also a severe aversion of pain. It has been noted when he experiences pain, he starts to hyperventilate. . I have encouraged patient to do least exercises in the bed. Patient was advised to do core exercises by therapy. I did talk to the patient about hyperextension exercises which he has not previously but acknowledging the cumbersome nature of doing in these hospital beds. I did tell the patient that my goal is to get him home but if he does not improve then relook at a senior care facility. PLAN: Plan 4. Morbid obesity, BMI 53.0, lifestyle modification recommended 5. Asthma/seasonal and, not in acute exacerbation 6. DVT prophylaxis, Lovenox subcu BID Greater than 35 minutes of which greater than 50% of time was counseling patient at bedside about his back pain disc herniation and need for activity and therapy. Charges/Coding Visit Charges Inpatient E&M: 38025 Subs Hosp L3
[2022-03-11 08:20] VITALS: BP 185/95; PULSE 77; RESP 18; TEMP 36.8; O2SAT 96
[2022-03-11] MEDS: Gabapentin 100 MG Capsule PO ×3 (08:29→17:25)
[2022-03-11] MEDS: Enoxaparin 40 MG/0.4 ML Syringe SC ×2 (08:29→21:30)
[2022-03-11] MEDS: amLODIPine 5 MG Tablet PO (08:29)
[2022-03-11] MEDS: oxyCODONE 5 MG Tablet 10 MG PO ×3 (08:37→17:24)
[2022-03-11] MEDS: Morphine 2 MG/ML Syringe IV ×3 (09:39→20:36)
[2022-03-11] MEDS: Lidocaine 5% Patch 3 PATCH TOPICAL (09:44)
--- NOTE | 2022-03-11 14:46 | CM.ED ---
Addendum entered by Casi Taveras 03/11/22 15:44: ROBE faxed referral packet to [facility] for their review. ROBE had also provided patient with list of SNF from [facility] who were in network for patient. Casi MCBRIDE Original Note: ROBE Note SW met with patient. He said that he has not had time to determine what SNF he needs as he has been focusing on walking. SW indicated that it is important that we began the process as his insurance needs precert. He asked his mother to come and assist with the decision. Patient's mother came to the hospital and met with this auto service writer. Mother has been a nurse for 30 years and currently employed at [employer]. Patient decided he will stay in [place] for rehab. Patient said that he would like his mother to assist with recommending a SNF placement. ROBE reviewed options for SNF including [facility], [facility], [facility], [facility]. Patient and his mother agreed to [facility]. ROBE offered to call [facility] to see if they take patient's insurance and they declined contacting [facility]. ROBE called Josi at [facility]. She said no staff is available and she has no idea if there are beds available. She advised to fax referral to [phone]. Plan: SNF Casi MCBRIDE
[2022-03-11 15:10] VITALS: BP 167/93; PULSE 63; RESP 18; TEMP 37.1; O2SAT 96
[2022-03-11 20:45] VITALS: BP 156/80; PULSE 95; RESP 16; TEMP 36.8; O2SAT 96
[2022-03-12 02:45] VITALS: BP 149/78; PULSE 71; RESP 16; TEMP 36.6; O2SAT 96
[2022-03-12] MEDS: cycloBENZAPRine HCl 10 MG Tablet PO ×3 (02:48→22:00)
[2022-03-12] MEDS: oxyCODONE 5 MG Tablet 10 MG PO ×3 (02:48→22:00)
[2022-03-12] MEDS: Acetaminophen 500 MG Tablet 1000 MG PO ×3 (05:41→21:14)
[2022-03-12] MEDS: 0.9% Saline Lock 10 ML Syringe IV ×2 (05:42→09:58)
[2022-03-12] MEDS: Morphine 2 MG/ML Syringe IV ×2 (05:42→09:57)
--- NOTE | 2022-03-12 07:06 | PN.HOSP_ITS ---
Subjective Subjective States that in bed he is turning onto his stomach. Is moving his leg but having difficulty with rotating his right foot. Did work with therapy and was able to ambulate 150 feet with a 4 wheeled walker. And was a minimal assist x2 edge of bed. Objective Data Objective Data Vital Signs: Vital Signs Temp Pulse Resp BP Pulse Ox O2 Del Method 36.6 C 71 16 149/78 H 96 Room Air 03/12/22 02:45 03/12/22 02:45 03/12/22 02:45 03/12/22 02:45 03/12/22 02:45 03/12/22 02:45 Oxygen Delivery Method Room Air Weight: 154 kg Body Mass Index (BMI) 51.2 Intake & Output: Intake and Output for Last 24 Hours 03/10/22 03/11/22 03/12/22 23:59 23:59 23:59 Intake Total 950 / 950 1000 / 1000 Output Total 850 / 1450 3050 / 3600 1100 / 1100 Balance 100 / -500 -2050 / -2600 -1100 / -1100 Lab / Micro Data Result Diagrams: 03/08/22 05:50 03/09/22 05:08 Physical Exam Const alert and no apparent distress Neuro oriented x3 Neuro Narrative: DTRs 2 out of 6 and patellar reflexes bilaterally. Plantar flexion of feet is 5-5 and limited dorsiflexion on the right foot. Sensorium / Orientation: awake and alert Psych affect normal Assessment & Plan Assessment/Plan (1) Intractable back pain: PLAN: Patient presents with associated radiculopathy, tingling and numbness concerning for possible disc herniation Admit to MedSurg, pain control with scheduled Tylenol, Flexeril, as needed morphine, Lidoderm patches MRI of the lumbar spine, performed that showed disc herniations. I was concerned given the patient's symptoms did not match up with the read so I spoke with Dr. Salcedo. He stated the patient has herniation at L5-S1. He recommended dexamethasone 4 mg every 6 hours for 24 hours, 100 mg gabapentin 3 times daily and plan for caudal epidural on the fourth. PT/OT to evaluate and treat. Did encourage patient to engage with therapy as he is unable to tolerate. Status post caudal epidural on the fourth Add fentanyl patch I do not get the sense that the patient is drug-seeking but has a low pain tolerance and becomes anxious when he has severe pain. Patient was observed hyperventilating when he has some back spasms in the room. Reassurance was provided to the patient and discussed with the patient that he needs to be active involved. Patient states that he has had severe pain like this before related with his back and that he had placed himself in bed rest. Patient has never been advised by medical provider that I can find that has advised bedrest. I told him that there is no medical or surgical indication for him to be on bedrest and strongly encouraged him to work with therapy. Again reminding him that we may have to consider senior living facility if he is unable to do his ADLs. 03/12: I had a very lengthy conversation with the patient's about his lack of significant progress with therapy. Patient stated that he was improved overall able to sit the bed for few minutes. I told him that that is not nearly enough and I would want him sitting in a chair for hours and walking with therapy. Told him that I want to see him require less narcotics as well he was in agreement to that. This was before he actually saw therapy today. Explained to him that if he continues to have minimal improvements that eventually the [employer] will stop paying for him senior living facility. With therapy he was able to walk 150 feet both still minimal assist of 1 person. Is think it is probably still on the table for him to go to senior living facility but can reassess on the to see if he is improving enough to be able to go home and he has to do home health care outpatient therapy. (2) Hypertension: PLAN: Pressure has been consistently elevated certainly exacerbated by pain Patient states that he has been on blood pressure medications on and off. We will monitor for now, hydralazine as needed still elevated: add amlodipine (3) Debility: PLAN: Limited by pain, but also anxiety. Pt appear clearly obviously having pain, but also a severe aversion of pain. It has been noted when he experiences pain, he starts to hyperventilate. . I have encouraged patient to do least exercises in the bed. Patient was advised to do core exercises by therapy. I did talk to the patient about hyperextension exercises which he has not previously but acknowledging the cumbersome nature of doing in these hospital beds. I did tell the patient that my goal is to get him home but if he does not improve then we need to look at a senior living facility. Reviewed CM note from 03/11, referral sent to [facility]. 03/12: Patient improved and able to walk 150 feet with a 4 wheeled walker but still minimum assist of 1. Reevaluate on the to see if going to senior living facility is still necessary. PLAN: Plan 4. Morbid obesity, BMI 53.0, lifestyle modification recommended 5. Asthma/seasonal and, not in acute exacerbation 6. DVT prophylaxis, Lovenox subcu BID Greater than 35 minutes of which greater than 50% of time was constipation at bedside about his herniated disc, lack of improvement, and encouraged him to work with therapy and to work through the pain within reason. Charges/Coding Visit Charges Inpatient E&M: 91765 Subs Hosp L3
[2022-03-12] MEDS: Gabapentin 100 MG Capsule PO ×3 (08:34→18:30)
[2022-03-12] MEDS: Lidocaine 5% Patch 3 PATCH TOPICAL (08:34)
[2022-03-12] MEDS: Enoxaparin 40 MG/0.4 ML Syringe SC ×2 (08:35→21:14)
[2022-03-12] MEDS: amLODIPine 5 MG Tablet PO (08:36)
[2022-03-12 08:41] VITALS: BP 176/85; PULSE 78; RESP 18; TEMP 37; O2SAT 100
--- NOTE | 2022-03-12 09:00 | NURSING ---
Pt continues to refuse Stool Softners despite education given regarding importance of taking them. Pt has not had a BM in 7 days and wants to wait to take stool softners until he can get up and walk. Pt given fresh ice for his back per his request and heating pad turned on for his request as well. Lidoderm Patch applied, See EMAR. Call light, urinal, and bedside table in reach. No further needs.
[2022-03-12 09:58] VITALS: PULSE 78
[2022-03-12] MEDS: hydrALAZINE 20 MG/ML Vial 5 MG IV (09:58)
[2022-03-12] MEDS: Senna/Docusate Sodium 1 Tablet 2 TABLET PO ×2 (11:13→21:14)
--- NOTE | 2022-03-12 11:25 | NURSING ---
Sitting in chair. Tolerating well. Requesting to take a shower when mom gets here with clothes.
[2022-03-12 11:40] LABS: Bedside Glucose 115 mg/dL (74-106)
--- NOTE | 2022-03-12 13:14 | NURSING ---
Pt walked in [place] and then took a shower. Now sitting back in chair.
[2022-03-12 14:44] VITALS: BP 130/79; PULSE 121; RESP 18; TEMP 37.2; O2SAT 98
[2022-03-12 15:00] VITALS: PULSE 110
[2022-03-12 20:33] VITALS: BP 132/78; PULSE 99; RESP 16; TEMP 36.6; O2SAT 97
[2022-03-13 02:15] VITALS: BP 136/56; PULSE 63; RESP 16; TEMP 36.6; O2SAT 95
[2022-03-13] MEDS: Acetaminophen 500 MG Tablet 1000 MG PO ×2 (05:33→14:05)
[2022-03-13] MEDS: Gabapentin 100 MG Capsule PO ×2 (08:56→12:07)
[2022-03-13 08:58] VITALS: BP 159/110; PULSE 88; RESP 18; TEMP 36.7; O2SAT 97
[2022-03-13] MEDS: cycloBENZAPRine HCl 10 MG Tablet PO (09:11)
[2022-03-13] MEDS: Lidocaine 5% Patch 3 PATCH TOPICAL (09:11)
[2022-03-13] MEDS: Enoxaparin 40 MG/0.4 ML Syringe SC (09:12)
[2022-03-13] MEDS: Senna/Docusate Sodium 1 Tablet 2 TABLET PO (09:12)
[2022-03-13] MEDS: amLODIPine 5 MG Tablet PO (09:15)
--- NOTE | 2022-03-13 10:28 | CASEMGMT ---
Addendum entered by Karin John 03/13/22 15:43: CHIRAG CELESTIN notified pt needs prior auth for oxycodone. TC to [facility], info will be faxed to be completed. Auth could take at a minimum 2-10 days. TC to pharmacy, spoke to Tammy, she states pt could purchase med for $18.50. CHIRAG CELESTIN in to pt room to give option, pt states he will pay for med out of pocket to have at home. TC back to pharmacy to make aware. Also requested meds be delivered to the room. Per nurse request, asked pharmacy not to deliver until flexeril also ordered. Addendum entered by Karin John 03/13/22 14:48: Faxed DC summary to [facility] at this time. Addendum entered by Karin John 03/13/22 14:13: CHIRAG CELESTIN in to pt room. Pt is aware his FMLW papers will need to be completed by . 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 Updated hospitalist. Pt is aware that [facility] is able to accept him. He is also aware that a FWW will be delivered to his room prior to leaving. TC to Dr. Dean's office to make aware of HHC referral as pt has not seen her in some time, left message on medical line. He was also given a rx for outpt therapy. Pt denies further needs and states this is all good news today. Addendum entered by Karin John 03/13/22 14:02: Received tc back from [facility], they are able to accept pt for services. Addendum entered by Karin John 03/13/22 13:48: CHIRAG CELESTIN updated pt would like to return home with [facility]. CHIRAG CELESTIN in to pt room, provided him with a list of [facility] PCP's within 15 miles of his home per his request per [facility]'s website. Pt states he has seen but he would like to switch to someone closer to his home. He is aware for [facility], a physician is needed to follow. He states he will stay with then switch. He is aware to notify the [facility] if he switches. Discussed services, pt is only interested in PT currently. He will await his family to be home to be able to bathe for safety. Patient was provided a list of [facility] providers including quality and resource use data and consistent with the patient?s preferred geographic region, medical needs, and insurance network. The patient?s preferred provider is [facility] and [facility]. Faxed referral to [facility] at this time. TC to [facility] at [facility], referral made. Awaiting acceptance. Faxed referral to [facility] for FWW at this time and emailed hospital liaison. Original Note: CHIRAG CELESTIN in to pt room, pt sitting up in chair eating breakfast. Pt was ambulating in the halls prior. Discussed pt going home with outpt therapy vs [facility]. Pt states he does not feel he can return home. He states that he wants to go to [place]. He states that he needs therapy for a little bit until the numbness comes out of his legs and he regains strength. Discussed with patient that he is ambulating with the walker and that he may be denied for SNF. He states he does not want to private pay. He states he does not have help at home. Updated SW who will discuss with patient. Pt also interested in a [facility] doctor in [place] or [place]. CHIRAG CELESTIN to check on this.
--- NOTE | 2022-03-13 12:19 | PCM.PN.HOSP ---
Subjective Subjective Patient states he is overall much better than he was on presentation however his mobility is significantly compromised still. He feels that he needs to go to a facility for ongoing rehab prior to discharge home as he lives with his parents and they are not able to be there [id number]. He is progressing with physical therapy and today was able to be seen by assist with most activities. Currently request for admission to [facility] is pending as the patient is adamant he is unable to go home. I did discuss with him its likely that the insurance company will deny admission to a facility but we will try. Objective Data Objective Data Vital Signs: Vital Signs Temp Pulse Resp BP Pulse Ox O2 Del Method 98.1 F 88 18 159/110 H 97 Room Air 03/13/22 08:58 03/13/22 08:58 03/13/22 08:58 03/13/22 08:58 03/13/22 08:58 03/13/22 09:01 Oxygen Delivery Method Room Air Weight: 152.2 kg Body Mass Index (BMI) 51.2 Intake & Output: Intake and Output for Last 24 Hours 03/11/22 03/12/22 03/13/22 23:59 23:59 23:59 Intake Total 1000 / 1000 810 / 810 Output Total 3050 / 3600 1700 / 1700 900 / 900 Balance -2050 / -2600 -890 / -890 -900 / -900 Lab / Micro Data Result Diagrams: 03/08/22 05:50 03/09/22 05:08 Physical Exam Const alert, oriented x3, no apparent distress, healthy appearing and well nourished Constitutional Narrative: Morbidly obese white male lying in left side-lying, bed mobility is independent patient appears to be improving based on previous reports, patient appears nontoxic HEENT head/scalp atraumatic and moist oral mucous membranes HEENT Narrative: Mallampati 3-4, no thrush Resp normal respiratory effort, no retractions, no use of accessory muscles and clear to auscultation bilaterally Resp Narrative: Distant secondary to body habitus Auscultation: Negative for crackles, rales, rhonchi or wheezes Cardio regular rate, regular rhythm, S1 normal heart sound, S2 normal heart sound, no murmurs, no rub, no gallops, no clicks and no JVD Cardio Narrative: Distant secondary to body habitus GI normal to inspection, nondistended, normoactive bowel sounds, soft to palpation, non-tender and non-distended Extremity no clubbing, cyanosis or edema Neuro oriented x3, CN's II-XII intact bilaterally, moves all extremities and no focal motor deficits Neuro Narrative: Decree sensation right leg Psych Psych Narrative: Affect is mildly flattened mood is somewhat depressed Assessment & Plan Assessment/Plan (1) Acute lumbar radiculopathy: (2) Lumbar disc herniation: (3) Intractable back pain: (4) Debility: PLAN: Plan Intractable low back pain -Patient completed Decadron 4 mg every 6 hours for 24 hours -Continue gabapentin 100 mg 3 times daily -Epidural performed on 03/09/2022 with good relief -Continue PT/OT -Continue fentanyl patch -Continue as needed Flexeril -Continue K pad -Patient currently ambulating and performing IADLs/ADLs with standby assist -Request for admission to [facility] is pending and then pre-CERT will need to be performed -We will refer for outpatient follow-up with orthospine after discharge Hypertension -Continue amlodipine -Blood pressures overall seem to be improved with pressures in the 130s over 70s -Continue to monitor for increase antihypertensive needs Asthma/seasonal allergies -Remains stable -As needed albuterol Morbid obesity -BMI 46.8 -Recommend weight loss -Complicates treatment, prognosis, outcomes -Would recommend outpatient polysomnography Tobacco abuse -Strongly recommend cessation -Nicotine replacement therapy as needed DVT prophylaxis -Continue Lovenox 40 mg twice daily Charges/Coding Visit Charges Inpatient E&M: 04281 Subs Hosp L2
--- NOTE | 2022-03-13 13:00 | CASEMGMT ---
Addendum entered by Luz Case 03/13/22 14:43: Phone call to [facility] and referral cancelled. SYMONE Corado Original Note: Social Work SW met with pt, reviewed functionality with therapy and positive changes pt has made over the last 24 hours. SW explained that due to pt's high level of function, insurance would most likely not approve SNF level of care as pt can return home safely with a lower level of care. Gave options of home health and outpatient therapy. Pt is now agreeable to go home and would prefer home health. Pt will be returning to his current residence in [place]. ROBE provided written information to pt on the [facility] transportation program. RNCM updated on pt wish for home health as well as need for wheeled walker and PCP. SYMONE Corado
--- NOTE | 2022-03-13 13:37 | DS.PCM_ITS ---
Providers Date of Admission: 03/08/22 Date of Discharge: 03/13/22 Primary Care Physician: Zainab Primary Care Phys Consultations 03/08/22 11:35 Consult: Orthopedics Routine Consulting Provider: Raffaele Salcedo Reason for Consult: disc herniation EMERGENT Consult: No MD Notified: Yes Date Notified: 03/08/22 Time Notified: 11:36 Method of Notification: Verbal Reason For Visit: ACUTE INTRACTABLE BACK PAIN/HTN URGENCY Diagnosis Discharge Diagnosis (1) Acute lumbar radiculopathy: Status: Acute Code(s): M54.16 - Radiculopathy, lumbar region (2) Lumbar disc herniation: Status: Acute Code(s): M51.26 - Other intervertebral disc displacement, lumbar region (3) Intractable back pain: Status: Acute Code(s): M54.9 - Dorsalgia, unspecified (4) Debility: Status: Acute Code(s): R53.81 - Other malaise Plan Intractable low back pain -Patient completed Decadron 4 mg every 6 hours for 24 hours -Continue gabapentin 100 mg 3 times daily -Epidural performed on 03/09/2022 with good relief -Continue PT/OT -Continue fentanyl patch -Continue as needed Flexeril -Continue K pad -Patient currently ambulating and performing IADLs/ADLs with standby assist -Request for admission to [place] is pending and then pre-CERT will need to be performed -We will refer for outpatient follow-up with orthospine after discharge Hypertension -Continue amlodipine -Blood pressures overall seem to be improved with pressures in the 130s over 70s -Continue to monitor for increase antihypertensive needs Asthma/seasonal allergies -Remains stable -As needed albuterol Morbid obesity -BMI 46.8 -Recommend weight loss -Complicates treatment, prognosis, outcomes -Would recommend outpatient polysomnography Tobacco abuse -Strongly recommend cessation -Nicotine replacement therapy as needed DVT prophylaxis -Continue Lovenox 40 mg twice daily Medications at Discharge Home Medications acetaminophen 325 mg capsule (Tylenol) 1,000 mg PO Q6H PRN Pain 03/08/22 cyclobenzaprine 10 mg tablet 10 mg PO TID PRN Back Pain 03/08/22 ibuprofen 600 mg tablet 1,200 mg PO Q6H PRN pain 03/08/22 amlodipine 5 mg tablet 5 mg PO DAILY #30 tabs 03/13/22 gabapentin 100 mg capsule 100 mg PO TIDCM #90 caps 03/13/22 lidocaine 5 % topical patch 3 patch topical DAILY #15 ea 03/13/22 oxycodone 10 mg tablet 10 mg PO Q6H PRN pain (scale score 7-10) 7 days #30 tabs 03/13/22 Hospital Course Operations - (Spinal epidural) Summary of Care Provided Minutes Spent on Discharge: 39 Hospital Course: Mr. Youssef is a 36-year-old morbidly obese white male who presented to the emergency department [facility] on 03/08/2022 with acute on chronic low back pain. The patient has a known history of back pain with herniated and ruptured disc previously in high school and has had low back pain on and off since. Prior to presentation he reported back pain that has been ongoing for approximately 5 months and was seen by a provider at a urgent care and was referred to a neurosurgeon at that time to get an MRI. That was to be done on March 28, 2022 however the patient suffered from worsening pain that radiated to his hip and down his leg and into his big toe and was not able to move his bowels secondary to fear of bearing down with pain. He admitted to associated tingling and numbness in his legs but denied any incontinence of urine or stool. He had not been able to ambulate since the day prior to admission. In the emergency department he was hypertensive with a blood pressure of 163/88, heart rate of 89, respiratory rate of 17 and his temperature was 98.8. Oxygen saturation was 97% on room air. His CBC and BMP were unremarkable. Given his intractable low back pain he was admitted to the medical floor and a lumbar MRI was performed. This showed multilevel generative disc disease with this being most prominent at the L4-L5 intervertebral disc space and showed moderate narrowing of the right neuroforaminal canal and mild to moderate narrowing of the left neuroforamina. Orthopedic spine surgery was consulted and recommended the patient be given 24 hours of Decadron 4 mg along with gabapentin and a fentanyl patch. His home Flexeril was continued and he was given a K pad for symptoms. Orthospine took him for a fluoroscopy guided epidural on 03/09/2022 which resulted in significant improvement in his symptoms, however he had ongoing debility and intermittently lacks motivation. He did progress with therapy and on the day of discharge was standby assist with a wheeled walker and all ADLs. His bed mobility was independent to standby assist. Despite his minimal needs the patient was still interested in pursuing a skilled facility for rehab prior to discharge home as he is concerned because he is not supervised all the time. He currently lives with his parents. Unfortunately, he did fairly well with physical therapy and request for rehab services was denied. He was sent home with a prescription for outpatient therapy versus home health care. There was concern that we may not be able to get home health care set up as he had not been established with a primary care physician however he reported he sees Dr. Dean,however had not seen her in a long time. He was discharged home with medication for pain, muscle relaxant, gabapentin, an order for outpatient physical therapy was given in the event that we were not able to arrange home health care services. He was written off work for 2 weeks and will require reevaluation within that time. For return to work. He is to follow-up with Dr. Salcedo within the next 2 weeks and I strongly encour aged him to follow-up with his primary care physician within the next 2 weeks. Of note, his blood pressure remained elevated throughout his hospital stay even after his pain control had improved so I suspect he has essential hypertension. He was started on amlodipine 5 mg daily and needs close follow-up for up titration if his blood pressure is not controlled. I also recommend outpatient polysomnography as I am concerned he obstructive sleep apnea at baseline. Discharge diagnoses: Intractable low back pain-resolved Degenerative disc disease Lumbar radiculopathy Hypertension Asthma Seasonal allergies Morbid obesity Tobacco abuse Weight / BMI Weight Weight: 152.2 kg Body Mass Index (BMI) 51.2 ABG / Lab / Microbiology Data Result Diagrams: 03/08/22 05:50 03/09/22 05:08 Meaningful Use Info Meaningful Use Diagnoses (Choose all that apply): None applicable Discharge Plan Admission Admit Date/Time: 03/08/22 01:36 Primary Reason for Your Visit: Intractable LBP Attending Provider: Chrissy Abreu Primary Care Provider: Care Physician,No Primary Consulting Providers: Paty Aparicio ; Raffaele Salcedo ; James Bateman Instructions Forms: Work / School Excuse Discharge Orders/Prescriptions Prescriptions: New amlodipine 5 mg Tablet 5 mg PO DAILY Qty: 30 0RF oxycodone 10 mg tablet 10 mg PO Q6H PRN (Reason: pain (scale score 7-10)) 7 Days Qty: 30 0RF gabapentin 100 mg Capsule 100 mg PO TIDCM Qty: 90 0RF lidocaine 5 % Adhesive Patch,Medicated 3 patch topical DAILY Qty: 15 0RF Protocol: *Topical Application Instructions APPLICATION INSTRUCTIONS: Apply to the lower mid back affected areas Continued ibuprofen 600 mg Tablet 1,200 mg PO Q6H PRN (Reason: pain) acetaminophen [Tylenol] 325 mg Capsule 1,000 mg PO Q6H PRN (Reason: Pain) cyclobenzaprine 10 mg tablet 10 mg PO TID PRN (Reason: Back Pain) Discontinued prednisone 10 mg tablet See Taper PO DAILY Taper: Prednisone Taper 60 tab WITH BREAKFAST for 3 Days and 0 Hour 50 tab WITH BREAKFAST for 3 Days and 0 Hour 40 tab WITH BREAKFAST for 3 Days and 0 Hour 30 tab WITH BREAKFAST for 3 Days and 0 Hour 20 tab WITH BREAKFAST for 3 Days and 0 Hour 10 tab WITH BREAKFAST for 3 Days and 0 Hour Rx Instructions: filled 03/06 for 14 days Referrals / Follow Up: Malena Dean MD [Med Staff - Active Staff] - Within 2 Weeks Raffaele Salcedo DO [Med Staff - Active Staff] - Within 2 Weeks (Lumbar Radiculopathy) Care Physician,No Primary [Primary Care Provider] - Disposition Disposition (needs filled in before D/C Order can be placed): Home Health Service Charges/Coding Visit Charges Inpatient E&M: 47257 Disch Hosp
--- NOTE | 2022-03-13 13:50 | CASEMGMT ---
Social Work SW into pt room to discuss discharge planning. SW introduce self and role at the hospital. SW discussed with pt his choice to go to [facility]. SW explained the likelihood that he will be denied as his PT/OT notes indicate he could be independent at home. Pt requesting the referral still be sent to [facility]. SW informed pt this can be done but also asked if he has a back up plan with going home. Pt stated concerns of transportation for OP therapy if he goes home. SW informed him his insurance has a transportation program that would assist with this. Pt also voiced concern with independent living skills, specifically with showering on his own. ROBE shared with pt that [facility] could assist with this but he would also likely be required to have Pt therapy in the home vs. OP therapy at a facility in the community. Pt voicing understanding but still requesting the [facility] referral be sent. Pt also asked about FMLA papers and what would need to happen if he is off work for an extended period of time. ROBE reported to pt that the dr would be updated on this to figure out what steps he needs to take. ROBE spoke to Dr. Abreu who stated Pt would need to complete FMLA papers with his PCP. SYMONE Norton
[2022-03-13] MEDS: Magnesium Hydroxide 30 ML UDC PO (14:16)
[2022-03-13 15:30] VITALS: BP 145/91; PULSE 98; RESP 18; TEMP 37.1; O2SAT 97
--- NOTE | 2022-03-14 15:36 | CASEMGMT ---
Received vm from Dr.Oleghe Chelsea's office who states she has not seen pt in 2 years and he would need to make an appt prior to her following the HHC. TC to pt to make aware. Pt states he is doing really well and feels he may just go to outpt therapy instead of having HHC. He states he is working on finding a PCP closer to his home. He states he is doing well and denies further needs.
== END 2022-03-13 16:37 | disposition home health service (06) | DRG 347 ==
LOC: ED 03-08 01:21 → MS3 03-08 06:56
PROVIDERS: Anesthesiology; Orthopaedic Surgery; Admitting Provider Internal Medicine; Emergency Provider Emergency Medicine; Visit Provider Internal Medicine
PROC: 3E0S3BZ Introduction of Anesthetic Agent into Epidural Space, Percutaneous Approach (ICD-10-PCS; CPT 62282; principal; 2022-03-09 10:25)
DX: M51.16 Intervertebral disc disorders with radiculopathy, lumbar region (principal); E66.01 Morbid (severe) obesity due to excess calories; Z68.42 Body mass index [BMI] 45.0-49.9, adult; M48.061 Spinal stenosis, lumbar region without neurogenic claudication; I10 Essential (primary) hypertension; J45.909 Unspecified asthma, uncomplicated; F17.210 Nicotine dependence, cigarettes, uncomplicated; M47.26 Other spondylosis with radiculopathy, lumbar region; M47.27 Other spondylosis with radiculopathy, lumbosacral region; M48.07 Spinal stenosis, lumbosacral region; G89.29 Other chronic pain; R53.81 Other malaise; Z79.899 Other long term (current) drug therapy
CPT/HCPCS: 36415; 64483; 72148; 77003; 80048; 80053; 82962; 85025; 93005; 97116; 97162; 97165; 97530; 99251; 99284; 99406; A4216; G0463; J2405; J3490